=== PATIENT | male | born 1995 | race Caucasian/White ===

== ENCOUNTER 2017-02-27 19:54 | Emergency (ER) | payer BC ==
--- NOTE | 2017-02-27 21:47 | ED ---
Laceration/Wound HPI - HPI Summary HPI Summary: 21 male presents to ED with complaints of avulsion of tip of right 5th and 4th digit after using a mandolin while trying to make dinner just [employer]. Pain is under control, worse with touching it. However is has been unable to control the bleeding. Denies anticoagulants. Believes his tetanus has been updated in the last 5 years. No other injuries. Has FROM and denies nail involvement. Denies numbness/tingling. No other complaints. No PMHx. No medications. Right hand dominant. Denies headache and lightheadedness. - History of Current Complaint Stated Complaint: RT HAND LAC Time Seen by Provider: 02/27/17 20:17 Hx Obtained From: Patient Mechanism of Injury: Sharp/Blunt Trauma Onset/Duration: Sudden Onset Aggravating: Movement Alleviating: Compression Onset Severity: Moderate Current Severity: Mild Pain Intensity: 3 Pain Scale Used: 0-10 Numeric Related Hx: Dominant Hand (Right) - Allergy/Home Medications Allergies/Adverse Reactions: Allergies Allergy/AdvReac Type Severity Reaction Status Date / Time No Known Allergies Allergy Verified 02/27/17 20:04 PMH/Surg Hx/FS Hx/Imm Hx Endocrine/Hematology History: Denies: Hx Anticoagulant Therapy, Hx Diabetes Cardiovascular History: Denies: Hx Hypertension Respiratory History: Denies: Hx Asthma - Immunization History Date of Tetanus Vaccine: UTD Immunizations Up to Date: Yes Infectious Disease History: No Infectious Disease History: Denies: Traveled Outside the [place] in Last 30 Days - Family History Known Family History: Positive: None - Social History Alcohol Use: Weekly Substance Use Type: Reports: Marijuana Substance Use Comment - Amount & Last Used: occasionally Smoking Status (MU): Never Smoked Tobacco Review of Systems Constitutional: Negative Cardiovascular: Negative Respiratory: Negative Positive: Other - avulsion right 4th digit, abrasion right 5th digit All Other Systems Reviewed And Are Negative: Yes Physical Exam Triage Information Reviewed: Yes Vital Signs On Initial Exam: Initial Vitals Temp Pulse Resp BP Pulse Ox 98.3 F 74 18 136/85 100 02/27/17 20:00 02/27/17 20:00 02/27/17 20:00 02/27/17 20:00 02/27/17 20:00 Vital Signs Reviewed: Yes Appearance: Positive: Well-Appearing, No Pain Distress, Well-Nourished Skin: Positive: Warm, Skin Color Reflects Adequate Perfusion, Dry, Other - small superficial 4th right digit skin avulsion on tip of finger palmar side, no nail, tendon or arterial involvement. bleeding controlled with pressure. Clean cut. 5th right digit abrasion, minimal to no bleeding, well approximated and superficial. No FB. Negative: Cold, Numb, Cyanosis @ Eyes: Positive: Conjunctiva Clear ENT: Positive: Hearing grossly normal Neck: Positive: Nontender Respiratory/Lung Sounds: Positive: Clear to Auscultation, Breath Sounds Present. Negative: Rales, Rhonchi, Wheezes Cardiovascular: Positive: Normal, RRR, Pulses are Symmetrical in both Upper and Lower Extremities - 2+ radial b/l. Negative: Murmur, Rub Musculoskeletal: Positive: Normal, Strength/ROM Intact. Negative: Abnormal @, Pain @, Edema Left, Edema Right, Other - no crepitus or step off Neurological: Positive: Normal, Sensory/Motor Intact, Alert, Oriented to Person Place, Time, NV Bundle Intact Distally - [place] Coma Scale Coma Scale Total: 15 Procedures - Laceration/Wound Repair 1 Location: Other - 4th digit right Length, Depth and Shape: skin avulsion 4th digit tip Irrigated w/ Saline (ccs): 500 Laceration/Wound Explored: clean, no foreign body removed Closure: Skin Adhesive - surgicel and xeroform Sterile Dressing Applied?: Yes - surgicel, xeroform, coban 2 Location: Other - 5th digit Length, Depth and Shape: abrasion 5th digit right hand Irrigated w/ Saline (ccs): 200 Laceration/Wound Explored: clean, no foreign body removed Closure: Skin Adhesive - xeroform Sterile Dressing Applied?: Yes - xeroform, coban Diagnostics - Vital Signs Vital Signs Temp Pulse Resp BP Pulse Ox 02/27/17 20:00 98.3 F 74 18 136/85 100 - Laboratory Lab Statement: Any lab studies that have been ordered have been reviewed, and results considered in the medical decision making process. Laceration Repair Course/Dx - Course Course Of Treatment: xray not obtained due to JOSELINE and PE findings. due to JOSELINE and PE findings skin avulsions were cleaned and pressure, elevation and ice applied to stop bleeding. surgicel applied along with xeroform and coban. had relief from bleeding. tetanus UTD. no concern for infection requiring AB at this time. No bone or muscle involvement, very superficial. No concern for other etiology at this time. Follow up with PCP for recheck. Keep clean and dry , do not get wet and re-dress. Aware of worsening signs and symptoms to watch out for and to return if occur, such as re-bleeding. - Differential Dx Differental Diagnoses: Abrasion, Avulsion, Laceration - Clinical Impression Provider Diagnoses: Avulsion, finger tip Discharge - Discharge Plan Condition: Stable Disposition: HOME Patient Education Materials: Skin Avulsion (ED) Referrals: [facility] [Primary Care Provider] - Additional Instructions: Keep finger elevated. Recommend applying ice (that will not get dressing wet) if possible for the rest of tonight (20 minutes on and 20 minutes off). Do not remove dressing or get dressing wet for 48 hours. You may gently soak dressing with water and removed after 48 hours to re-apply a new one. Keep clean and dry, apply triple antibiotic ointment on it. Any signs of infection or worsening symptoms please seek medical attention as we discussed. Make sure to check that your tetanus has been updated within the last 5 years, tomorrow. Follow up for re-check with health center to ensure improvement.
[2017-02-27 21:57] VITALS: BP 134/83
== END 2017-02-27 21:56 | disposition home or self-care (01) ==
LOC: ED 19:54
DX: S61.218A Laceration without foreign body of other finger without damage to nail, initial encounter (principal); W27.4XXA Contact with kitchen utensil, initial encounter; Y93.G1 Activity, food preparation and clean up; Y92.9 Unspecified place or not applicable
CPT/HCPCS: 12001; 99282